=== PATIENT | female | born 1955 | race Caucasian/White ===

== ENCOUNTER 2016-07-23 14:30 | Outpatient (RCR) | payer OTHER ==
[~2016-07-23 14:30] MED LIST: ACHD5005 PO; CEPH500C PO; ENAL20TA PO; HYDR-3454 PO; SIMV5TAB6
== END 2016-07-23 15:59 | disposition home or self-care (01) ==
PROVIDERS: ATTEND Physician Assistant
DX: M54.16 Radiculopathy, lumbar region (principal)

== ENCOUNTER → 2016-12-07 | Outpatient (CLI) | payer OTHER ==
[~2016-12-07] MED LIST changes: +TRAM50TA2 PO
--- NOTE | 2016-12-07 14:01 | Diagnostic Imaging Report ---
Bilateral screening mammogram 2D views with tomosynthesis. The current study was also evaluated with a Computer Aided Detection (CAD) system. INDICATION: Screening. No current complaints stated on the questionnaire. COMPARISON: 10/20/15. FINDINGS: The breasts are composed of scattered fibroglandular densities. There are scattered benign-appearing calcifications. Allowing for technique and positional differences, no suspicious change is seen. IMPRESSION: No significant change. ACR BI-RADS Category 2: Benign findings. Result letter will be mailed to the patient. Note: At least 10% of breast cancer is not imaged by mammography. Dictated by: Dictated on workstation # [id number]
== END ==
LOC: RAD 07:15
PROVIDERS: ATTEND Family Medicine
DX: Z12.31 Encounter for screening mammogram for malignant neoplasm of breast (principal)
CPT/HCPCS: 77067

== ENCOUNTER 2017-02-02 13:47 | Outpatient (RCR) | payer OTHER | END 2017-02-02 14:29 | disposition home or self-care (01) | PROVIDERS: ATTEND Family Medicine | DX: M54.5 Low back pain (principal) ==

== ENCOUNTER 2017-11-03 12:59 | Outpatient (RCR) | payer OTHER | END 2017-11-09 10:29 | disposition home or self-care (01) | PROVIDERS: ATTEND Family Medicine | DX: M54.5 Low back pain (principal); M79.671 Pain in right foot; M79.672 Pain in left foot ==

== ENCOUNTER → 2017-12-12 | Outpatient (CLI) | payer OTHER ==
--- NOTE | 2017-12-12 08:44 | Diagnostic Imaging Report ---
PROCEDURE: MRI lumbar spine. TECHNIQUE: Multiplanar, multisequence MRI of the lumbar spine was performed without contrast. INDICATION: Back pain extending into both legs. COMPARISON: Comparison is made with prior MRI of the lumbar spine from 10/20/2015. FINDINGS: There is right convexity lumbar scoliotic curvature. There is normal lordotic curvature. Vertebral body heights and marrow signal intensity are unremarkable apart from benign-appearing hemangiolipoma within the L3 vertebral body, unchanged. No acute compression fracture is seen. Conus appears unremarkable at the L1-2 level. Generalized degenerative disc disease with variable disc space narrowing and desiccation as well as endplate osteophyte formation is again noted similar to prior MRI. T12-L1: Central canal is widely patent. No neural foraminal narrowing is seen. L1-2: There is ligamentous thickening and facet changes. Central canal remains patent. No significant neural foraminal narrowing is seen. L2-3: There are hypertrophic facet changes and ligamentous thickening with mild trefoil configuration of the thecal sac. AP dimensions of the spinal canal remain within normal limits. There does appear to be narrowing of the left lateral recess. No significant neural foraminal narrowing is seen. L3-4: There is some ligamentous thickening and facet changes. Disc/osteophyte complex is present. This does narrow the left lateral recess. There also appears to be some mild narrowing of the left neural foramen. Right neural foramen and central canal are patent. L4-5: Hypertrophic facet changes and ligamentous thickening are present. Broad-based disc/osteophyte complex does narrow the lateral recesses bilaterally. The central canal is patent. There is moderate bilateral neural foraminal narrowing. L5-S1: Hypertrophic facet changes are present. Central canal is widely patent. There does appear to be bilateral lateral recess and bilateral neural foraminal narrowing. 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 No significant central canal stenosis is seen. No acute compression fracture is detected. Dictated by: Dictated on workstation # [id number]
--- NOTE | 2017-12-12 12:58 | Diagnostic Imaging Report ---
INDICATION: Routine screening. COMPARISON: 12/07/2016 and 10/20/2015. TECHNIQUE: 2D and 3D bilateral screening mammography was performed with CAD. FINDINGS: Scattered fibroglandular densities are identified bilaterally. Benign calcifications in the right breast are again noted. No mass or malignant appearing microcalcifications are seen. The axillae are unremarkable. IMPRESSION: No mammographic features suspicious for malignancy are identified. ACR BI-RADS Category 2: Benign findings. Result letter will be mailed to the patient. Note: At least 10% of breast cancer is not imaged by mammography. Dictated by: Dictated on workstation # [id number]
== END ==
LOC: RAD 07:31
PROVIDERS: ATTEND Family Medicine
DX: Z12.31 Encounter for screening mammogram for malignant neoplasm of breast (principal); M41.86 Other forms of scoliosis, lumbar region; M99.73 Connective tissue and disc stenosis of intervertebral foramina of lumbar region; M51.16 Intervertebral disc disorders with radiculopathy, lumbar region; M47.816 Spondylosis without myelopathy or radiculopathy, lumbar region; G96.19 Other disorders of meninges, not elsewhere classified
CPT/HCPCS: 72148; 77067

== ENCOUNTER 2018-01-05 13:00 | Outpatient (RCR) | payer OTHER | END 2018-01-05 14:33 | disposition home or self-care (01) | PROVIDERS: ATTEND Family Medicine | DX: M54.5 Low back pain (principal); M79.671 Pain in right foot; M79.672 Pain in left foot ==

== ENCOUNTER 2018-03-08 11:36 | Outpatient (CLI) | payer OTHER ==
[~2018-03-08] VITALS: Ht 154.9 cm; Wt 49.0 kg
[2018-03-08 12:01] VITALS: BP 121/79
== END 2018-03-08 12:26 | disposition home or self-care (01) ==
LOC: PREOP 11:36
PROVIDERS: ATTEND Surgery
DX: Z01.818 Encounter for other preprocedural examination (principal)
CPT/HCPCS: 87081

== ENCOUNTER 2018-03-13 06:04 | Day surgery (SDC) | payer OTHER ==
[~2018-03-13] VITALS: Ht 154.9 cm; Wt 48.6 kg
[2018-03-13 06:15] VITALS: BP 132/78
[2018-03-13] MEDS ORDERED: ceFAZolin INJECTION 1,000 MG in NS (IVPB) 50 ML IV ONE (06:15)
[2018-03-13] MEDS: LACTATED RINGERS 1,000 ML IV PRN ×2 (06:20→08:45)
--- NOTE | 2018-03-13 06:40 | NUR ---
RECEIVED VERBAL ORDER FROM BROCK WILKINS CRNA TO GIVE 20MG PEPCID AND ZOFRAN 4MG.
[2018-03-13] MEDS ORDERED: FAMOTIDINE 20MG/2ML IV (PEPCID) ONE (06:42)
[2018-03-13] MEDS ORDERED: ONDANSETRON 4 MG/2 ML (SDV) Z0FRAN ONE ×2 (06:42→06:57)
[2018-03-13] MEDS ORDERED: FAMOTIDINE 20MG/2ML IV (PEPCID) IVP ONE (06:45)
[2018-03-13] MEDS ORDERED: ONDANSETRON 4 MG/2 ML (SDV) Z0FRAN IVP ONE (06:45)
[2018-03-13] MEDS ORDERED: fentaNYL INJECTION 100 MCG/2 ML AMP ONE (06:57)
[2018-03-13] MEDS ORDERED: proPOfol 200 MG/20 ML (DIPRIVAN) VIAL IV ONE (06:57)
[2018-03-13] MEDS ORDERED: MIDAZOLAM 2 MG/2 ML (VERSED) VIAL ONE (06:57)
[2018-03-13] MEDS ORDERED: LIDOCAINE PF 2% 5 ML (XYLOCAINE) VIAL ONE (06:57)
[2018-03-13] MEDS ORDERED: ROCURONIUM 10 MG/ML 5 ML SYRINGE IV ONE (06:57)
[2018-03-13] MEDS ORDERED: LIDOCAINE 1% INJ 20 ML 20 ML VIAL ONE (07:17)
[2018-03-13] MEDS ORDERED: BUP/EPI 0.5% 1:200,000 (SENSORCAINE) 30 ML VIAL ONE (07:17)
--- NOTE | 2018-03-13 07:45 | Progress Note-Pre Operative ---
Pre-Operative Progress Note H&P Reviewed The H&P was reviewed, patient examined and no changes noted. Date Seen by Provider: Mar 13, 2018 Time Seen by Provider: 07:30 Date H&P Reviewed: Mar 13, 2018 Time H&P Reviewed: 07:30 Pre-Operative Diagnosis: right inguinal hernia TIFFANY MALCOLM DO Mar 13, 2018 07:44
[2018-03-13] MEDS ORDERED: SEVOFLURANE (ULTANE) 15 ML INHAL SOLN ONE (08:39)
[2018-03-13] MEDS ORDERED: NEOSTIGMINE 1 MG/ML 5 ML SYRINGE ONE (08:44)
[2018-03-13] MEDS ORDERED: BUPIVACAINE 0.25% 30 ML (SENSORCAINE) VIAL ONE (08:44)
[2018-03-13] MEDS ORDERED: GLYCOPYRROLATE 0.2 MG/ML (ROBINUL) 2 ML VIAL ONE (08:44)
--- NOTE | 2018-03-13 08:45 | Progress Note-Post Operative ---
Post-Operative Progess Note Surgeon (s)/Audio Visual Coordinator (s) Surgeon TIFFANY MALCOLM DO Audio Visual Coordinator: Dr. Johnson Pre-Operative Diagnosis right inguinal hernia Post-Operative Diagnosis direct right inguinal hernia Procedure & Operative Findings Date of Procedure 03/13/18 Procedure Performed/Findings right inguinal hernia repair Anesthesia Type gen Estimated Blood Loss Estimated blood loss (mL): min Specimens/Packing Specimens Removed na TIFFANY MALCOLM DO Mar 13, 2018 08:45
[2018-03-13] MEDS ORDERED: ACHD5005 PO (08:46)
[2018-03-13] MEDS ORDERED: DOCU-143 PO (08:46)
--- NOTE | 2018-03-13 08:47 | Discharge Inst-Simple/Standard ---
Discharge Inst-Standard Discharge Medications New, Converted or Re-Newed RX: RX on Chart Patient Instructions/Follow Up Plan of Care/Instructions/FU: 2 weeks Malcolm Activity as Tolerated: No Discharge Diet: Regular Diet Other Inst to Patient Follow up Appt: Make appointment for 2 week. Instructions: No lifting greater than 10 pounds. No strenuous activity. May shower in 24 hours, no tub bath or soaking. Use incentive spirometer at home as directed. No Smoking Skin/Wound Care: You have special glue over incision it will fall off on its own. Symptoms to Report: Appetite Changes, Extremity Discoloration, Numbness/Tingling, Swelling Increased , Bleeding Excessive, Eyesight Changes, Pain Increased, Urine Color Change, Constipation(Persistent), Fever over 101 degree F, Pain/Pressure in chest, Urinating Difficulty, Cough Up/Vomit Blood, Heart Beat Irreg/Pounding, Pain/ Pressure in jaw, Vaginal Bleeding Increase, Cramps in feet or legs, Lightheadedness, Pain/Pressure in shoulder, Diarrhea(Persistent), Memory Changes Suddenly, Questions/Concerns, Weight gain consecutive days, Dizziness/ Fainting, Nausea/Vomiting, Shortness of Breath, Weight gain over 2 pounds If questions or concerns contact your physician Or seek help at emergency department. TIFFANY MALCOLM DO Mar 13, 2018 08:47
[2018-03-13] MEDS ORDERED: HYDROcodone/APAP 5 MG/325 MG (LORTAB) TAB PO PRN (09:00)
[2018-03-13] MEDS ORDERED: morphine INJ 10 MG/ML 1ML (SYR OR VIAL) IVP ONE (09:15)
[2018-03-13] MEDS ORDERED: PROMETHAZINE INJ 25 MG/ML (PHENERGAN) AMP IVP ONE (09:15)
[2018-03-13] MEDS ORDERED: ONDANSETRON 4 MG/2 ML (SDV) Z0FRAN IVP PRN (09:15)
[2018-03-13] MEDS ORDERED: MEPERIDINE (DEMEROL) INJ 50 MG/ML IVP ONE (09:15)
[2018-03-13 09:55] VITALS: BP 120/74
--- NOTE | 2018-03-13 10:07 | NUR ---
MERARY, RT PHONED FOR IS AT THIS TIME
[2018-03-13 10:25] VITALS: BP 132/84
--- NOTE | 2018-03-13 10:41 | Anesthesia-General Post-Op ---
General Patient Condition Mental Status/LOC: Same as Preop Cardiovascular: Satisfactory Nausea/Vomiting: Absent Respiratory: Satisfactory Pain: Controlled Complications: Absent Post Op Complications Complications None Follow Up Care/Instructions Patient Instructions None needed. Anesthesia/Patient Condition Patient Condition Patient is doing well, no complaints, stable vital signs, no apparent adverse anesthesia problems. No complications reported per nursing. BROCK WILKINS CRNA Mar 13, 2018 10:41
[2018-03-13 10:55] VITALS: BP 136/85
[2018-03-13 11:08] VITALS: BP 136/85
--- NOTE | 2018-03-14 02:34 | OPERATIVE REPORT ---
DATE OF SERVICE: 03/13/2018 PREOPERATIVE DIAGNOSIS: Right inguinal hernia. POSTOPERATIVE DIAGNOSIS: Direct right inguinal hernia. PROCEDURE: Open right inguinal hernia. SURGEON: Tiffany Malcolm DO CLOTH COLORER: Dr. Johnson, assisted in retraction, dissection and closure. ANESTHESIA: General. ESTIMATED BLOOD LOSS: Minimal. COMPLICATIONS: None. INDICATIONS: The patient is a 62-year-old female with a right inguinal hernia. She understands risks and benefits of procedure and wished to proceed with procedure. Consent was signed in the chart. DESCRIPTION OF PROCEDURE: The patient was taken to the operating suite. She was prepped and draped in sterile fashion. Surgical pause was performed. Local anesthetic was infiltrated into the area. A 15 blade scalpel was used to make a small skin incision in the right lower quadrant. Cautery dissection was taken down to the external oblique, which was then opened out through the external ring. The remnant was then dissected around and a direct defect was noted. The round ligament was removed. The hernia contents were then reduced down through the defect and using 2-0 Vicryl, the defect was closed and also the internal ring was closed. The ProGrip mesh was then cut to size. It was secured to Epi's ligament with 0 Vicryl suture. I then placed under the external oblique. Adequate coverage present. The wound was then irrigated with copious amounts of irrigation and suction. The external oblique was then closed, recreating the external ring with 3-0 Vicryl. The wound was then irrigated with copious amounts of irrigation again. The subcutaneous tissues were then reapproximated using 3-0 Vicryl. Skin was then closed using 4-0 Monocryl in a subcuticular fashion. The area was then washed and dried and Skin Affix was placed over the incision. The patient tolerated procedure well without complications. She was taken to recovery room in stable condition. Job ID: [id number] DocumentID: [id number] Dictated Date: 03/13/2018 14:05:56 Plaster Maker Date: 03/14/2018 02:33:03 Dictated By: TIFFANY MALCOLM DO
== END 2018-03-13 11:08 | disposition home or self-care (01) ==
LOC: SDC 06:04
PROVIDERS: ATTEND Surgery
DX: K40.90 Unilateral inguinal hernia, without obstruction or gangrene, not specified as recurrent (principal); I10 Essential (primary) hypertension; Z79.899 Other long term (current) drug therapy
CPT/HCPCS: 94664

== ENCOUNTER → 2018-12-13 | Outpatient (CLI) | payer MEDICARE, OTHER ==
[~2018-12-13] MED LIST changes: +DOCU-143 PO
--- NOTE | 2018-12-14 17:48 | Diagnostic Imaging Report ---
EXAMINATION: Digital mammogram bilateral screening. INDICATION: Screening. COMPARISON: This study was compared to the prior exams of 12/12/2017, 12/07/2016, and 10/20/2015. At this time, there are no current complaints. The current study was also evaluated with a Computer Aided Detection (CAD) system. 3-D tomosynthesis was also performed and reviewed. FINDINGS: There are scattered fibroglandular densities in both breasts which could obscure a lesion. When compared to the prior study, there has been no significant change. There is no primary or secondary sign of malignancy noted. The 3D tomographic views also fail to show any sign of malignancy. IMPRESSION: There is no evidence of malignancy. ACR BI-RADS Category 1: Negative. Result letter will be mailed to the patient. Note: At least 10% of breast cancer is not imaged by mammography. Dictated by: Dictated on workstation # [id number]
== END ==
LOC: RAD 14:37
PROVIDERS: ATTEND Family Medicine
DX: Z12.31 Encounter for screening mammogram for malignant neoplasm of breast (principal)
CPT/HCPCS: 77067

== ENCOUNTER 2019-01-16 13:49 | Outpatient (RCR) | payer OTHER, MEDICARE | END 2019-01-21 | disposition home or self-care (01) | PROVIDERS: ATTEND Family Medicine | DX: G89.29 Other chronic pain (principal); M54.40 Lumbago with sciatica, unspecified side; M79.671 Pain in right foot; M79.672 Pain in left foot; Z98.890 Other specified postprocedural states ==

== ENCOUNTER 2019-02-01 13:25 | Outpatient (RCR) | payer OTHER, MEDICARE ==
[~2019-02-01 13:25] MED LIST changes: -TRAM50TA2 PO; +TRM50T PO
== END 2019-02-14 13:21 | disposition home or self-care (01) ==
PROVIDERS: ATTEND Family Medicine
DX: G89.29 Other chronic pain (principal); M54.40 Lumbago with sciatica, unspecified side; M79.671 Pain in right foot; M79.672 Pain in left foot; Z98.890 Other specified postprocedural states

== ENCOUNTER 2019-04-05 12:54 | Outpatient (RCR) | payer MEDICARE | END 2019-04-05 15:58 | disposition home or self-care (01) | PROVIDERS: ATTEND Family Medicine | DX: M25.511 Pain in right shoulder (principal); M54.5 Low back pain ==

== ENCOUNTER 2020-02-05 05:43 | Outpatient (RCR) | payer MEDICARE ==
[~2020-02-05] VITALS: Ht 154.9 cm; Wt 48.6 kg
[~2020-02-05 05:43] MED LIST changes: -CYCL10TA9 PO; -DIAZ5TAB49 PO; -TRAM50TA3 PO
[2020-02-05] MEDS ORDERED: DIAZ5TAB49 PO (10:03)
[2020-02-05] MEDS ORDERED: ENAL20TA16 PO (10:03)
[2020-02-05] MEDS ORDERED: TRAM50TA3 PO (10:03)
[2020-02-05] MEDS ORDERED: CYCL10TA9 PO (10:03)
== END 2020-02-05 12:21 | disposition home or self-care (01) ==
LOC: PREOP 05:43
PROVIDERS: ATTEND Surgery
DX: Z01.818 Encounter for other preprocedural examination (principal); C76.42 Malignant neoplasm of left upper limb; C43.71 Malignant melanoma of right lower limb, including hip

== ENCOUNTER → 2020-02-05 | Outpatient (CLI) | payer MEDICARE ==
[~2020-02-05] MED LIST changes: +CYCL10TA9 PO; +DIAZ5TAB49 PO; +ENAL20TA16 PO; +TRAM50TA3 PO
== END ==
LOC: LABNPT 08:10
PROVIDERS: ATTEND Surgery
DX: Z20.828 Contact with and (suspected) exposure to other viral communicable diseases (principal)
CPT/HCPCS: 87635

== ENCOUNTER 2020-02-07 06:02 | Day surgery (SDC) | payer MEDICARE ==
[2020-02-07] VITALS (10 sets, daily range): BP systolic 100–126; BP diastolic 61–81
[~2020-02-07] VITALS: Ht 154.9 cm; Wt 48.6 kg
[~2020-02-07 06:02] MED LIST changes: +CYCL10TA9 PO; +DIAZ5TAB49 PO; +TRAM50TA3 PO
[2020-02-07] MEDS ORDERED: ceFAZolin INJECTION 1,000 MG in WATER (STERILE) FOR INJECTION 10 ML IV ONE (06:15)
[2020-02-07] MEDS: LACTATED RINGERS 1,000 ML IV PRN ×2 (06:55→09:30)
[2020-02-07] MEDS ORDERED: proPOfol 200 MG/20 ML (DIPRIVAN) VIAL IV ONE (07:06)
[2020-02-07] MEDS ORDERED: fentaNYL INJECTION 100 MCG/2 ML AMP ONE (07:06)
[2020-02-07] MEDS ORDERED: MIDAZOLAM 2 MG/2 ML (VERSED) VIAL ONE (07:06)
[2020-02-07] MEDS ORDERED: LIDOCAINE PF 2% 5 ML (XYLOCAINE) VIAL ONE (07:06)
[2020-02-07] MEDS ORDERED: ONDANSETRON 4 MG/2 ML (SDV) Z0FRAN ONE ×2 (07:06→10:10)
[2020-02-07] MEDS ORDERED: SEVOFLURANE (ULTANE) 15 ML INHAL SOLN ONE ×4 (07:09→09:45)
[2020-02-07] MEDS ORDERED: MIDAZOLAM 2 MG/2 ML (VERSED) VIAL IV ONE (07:15)
[2020-02-07] MEDS ORDERED: FAMOTIDINE 20MG/2ML IV (PEPCID) IV ONE (07:15)
[2020-02-07] MEDS ORDERED: ONDANSETRON 4 MG/2 ML (SDV) Z0FRAN IV ONE (07:15)
[2020-02-07] MEDS ORDERED: LIDOCAINE/EPI 1%-1:100,000 (XYLOCAINE) 50 ML ONE (08:38)
--- NOTE | 2020-02-07 08:56 | Progress Note-Pre Operative ---
Pre-Operative Progress Note H&P Reviewed The H&P was reviewed, patient examined and no changes noted. Date Seen by Provider: Feb 07, 2020 Time Seen by Provider: 08:55 Date H&P Reviewed: Feb 07, 2020 Time H&P Reviewed: 08:55 Pre-Operative Diagnosis: melanoma right ankle, skin lesion left hand TIFFANY MALCOLM DO Feb 07, 2020 08:56
--- NOTE | 2020-02-07 09:51 | Progress Note-Post Operative ---
Post-Operative Progess Note Surgeon (s)/Meter Repairer Helper (s) Surgeon TIFFANY MALCOLM DO Meter Repairer Helper: na Pre-Operative Diagnosis melanoma right ankle, skin lesion left hand Post-Operative Diagnosis same Procedure & Operative Findings Date of Procedure 02/07/20 Procedure Performed/Findings left hand skin lesion excision 1.1x2cm excision of right ankle melanoma 4.5x6.5cm Anesthesia Type general Estimated Blood Loss Estimated blood loss (mL): min Specimens/Packing Specimens Removed lesion left hand melanoma right ankle Packing: kerlex right ankle wet to dry TIFFANY MALCOLM DO Feb 07, 2020 09:51
--- NOTE | 2020-02-07 09:54 | Discharge Inst-Simple/Standard ---
Discharge Inst-Standard Patient Instructions/Follow Up Plan of Care/Instructions/FU: Tomorrow to same day surgery for packing change daily. Tuesday see Dr. Malcolm in office. Keep areas clean and dry. Change daily, with right ankle wet to dry. Activity as Tolerated: Yes Discharge Diet: Regular Diet Other Inst to Patient Follow up Appt: Make appointment for Dr. Malcolm Tuesday. Daily dressing changes daily and as needed wet to dry for right ankle. To be done in same day surgery. Instructions: No strenuous activity. May shower in 24 hours, no tub bath or soaking. Use incentive spirometer at home as directed. No Smoking Skin/Wound Care: As noted above. Symptoms to Report: Appetite Changes, Extremity Discoloration, Numbness/Tingling, Swelling Increased, Bleeding Excessive, Eyesight Changes, Pain Increased, Urine Color Change, Constipation(Persistent), Fever over 101 degree F, Pain/Pressure in chest, Urinating Difficulty, Cough Up/Vomit Blood, Heart Beat Irreg/Pounding, Pain/Pressure in jaw, Vaginal Bleeding Increase, Cramps in feet or legs, Lightheadedness, Pain/Pressure in shoulder, Diarrhea(Persistent), Memory Changes Suddenly, Questions/Concerns, Weight gain consecutive days, Dizziness/Fainting, Nausea/Vomiting, Shortness of Breath, Weight gain over 2 pounds If questions or concerns contact your physician Or seek help at emergency department. TIFFANY MALCOLM DO Feb 07, 2020 09:54
[2020-02-07] MEDS ORDERED: MEPERIDINE (DEMEROL) INJ 50 MG/ML IVP ONE (10:00)
[2020-02-07] MEDS ORDERED: ONDANSETRON 4 MG/2 ML (SDV) Z0FRAN IVP PRN (10:00)
[2020-02-07] MEDS ORDERED: morphine INJ 10 MG/ML 1ML (SYR OR VIAL) IVP ONE (10:00)
--- NOTE | 2020-02-07 10:41 | Anesthesia-General Post-Op ---
General Patient Condition Mental Status/LOC: Same as Preop Cardiovascular: Satisfactory Nausea/Vomiting: Absent Respiratory: Satisfactory Pain: Controlled Complications: Absent Post Op Complications Complications None Follow Up Care/Instructions Patient Instructions None needed. Anesthesia/Patient Condition Patient Condition Patient is doing well, no complaints, stable vital signs, no apparent adverse anesthesia problems. No complications reported per nursing. HERNANDEZ MORRISON CRNA Feb 07, 2020 10:41
--- NOTE | 2020-02-07 20:53 | OPERATIVE REPORT ---
DATE OF SERVICE: 02/07/2020 PREOPERATIVE DIAGNOSES: Melanoma right ankle and skin lesion, left hand dorsum. POSTOPERATIVE DIAGNOSES: Melanoma right ankle and skin lesion, left hand dorsum. PROCEDURE: Excision of left hand lesion 1.1 x 2 cm and excision of right ankle melanoma 4.5 x 6.5 cm. SURGEON: Tiffany Malcolm DO ANESTHESIA: General. ESTIMATED BLOOD LOSS: Minimal. COMPLICATIONS: None. INDICATIONS: The patient is a 64-year-old female with a lesion of the left hand, which pathology demonstrated squamous cell carcinoma and completely excised, and the patient with a large lesion to the right ankle area on the lateral aspect that biopsy demonstrating melanoma. The patient was discussed risks and benefits of procedures and wished to proceed with procedures. Consent was signed in the chart. DESCRIPTION OF PROCEDURE: The patient was taken to the operating suite. She was prepped and draped in sterile fashion. Surgical pause was performed. Local anesthetic was infiltrated in the left hand. An elliptical incision measuring 1.1 x 2 cm was made around the lesion removing skin and subcutaneous tissues. Skin was then closed using Prolene in a running fashion. The area was washed and dried, sterile bandage was applied. New instruments were used. Local anesthetic was infiltrated around the right ankle melanoma. A circumferential incision was made with 1 cm margin around the lesion. The skin and subcutaneous tissue was then removed with 15 blade scalpel measuring 4.5 x 6.5 cm. Specimen was then labeled short suture superior, long suture lateral. The wound was irrigated and hemostasis was achieved. The wound unable to be closed; therefore, it was packed wet to dry. The patient tolerated procedure well without any complications. RECOMMENDATIONS: The patient will continue with wound care and followup on pathology. Job ID: [id number] DocumentID: [id number] Dictated Date: 02/07/2020 14:55:11 Stripper And Taper Date: 02/07/2020 20:52:27 Dictated By: TIFFANY MALCOLM DO
== END 2020-02-07 11:05 | disposition home or self-care (01) ==
LOC: SDC 06:02
PROVIDERS: ATTEND Surgery
DX: C43.71 Malignant melanoma of right lower limb, including hip (principal); C43.62 Malignant melanoma of left upper limb, including shoulder; I10 Essential (primary) hypertension; M19.90 Unspecified osteoarthritis, unspecified site; Z79.899 Other long term (current) drug therapy; Z88.5 Allergy status to narcotic agent; Z88.8 Allergy status to other drugs, medicaments and biological substances
CPT/HCPCS: 87081; 88305; 88344

== ENCOUNTER → 2020-02-19 | Outpatient (CLI) | payer MEDICARE ==
[~2020-02-19] MED LIST changes: +HYDR-4226 PO
== END ==
LOC: LABNPT 08:14
PROVIDERS: ATTEND Surgery
DX: Z20.822 Contact with and (suspected) exposure to COVID-19 (principal)
CPT/HCPCS: 87635

== ENCOUNTER 2020-02-20 09:00 | Outpatient (RCR) | payer MEDICARE ==
[~2020-02-20] VITALS: Ht 154.9 cm; Wt 52.3 kg
[~2020-02-20 09:00] MED LIST changes: -HYDR-4226 PO
[2020-02-21] MEDS ORDERED: HYDR-4226 PO (12:28)
== END 2020-02-20 11:56 | disposition home or self-care (01) ==
LOC: PREOP 09:00
PROVIDERS: ATTEND Surgery
DX: Z01.818 Encounter for other preprocedural examination (principal)

== ENCOUNTER 2020-02-21 06:28 | Day surgery (SDC) | payer MEDICARE ==
[~2020-02-21] VITALS: Ht 154 cm; Wt 52.3 kg
[2020-02-21] VITALS (12 sets, daily range): BP systolic 115–135; BP diastolic 73–84
[2020-02-21] MEDS ORDERED: LACTATED RINGERS 1,000 ML IV PRN (06:45)
[2020-02-21] MEDS ORDERED: ceFAZolin INJECTION 1,000 MG in WATER (STERILE) FOR INJECTION 10 ML IV ONE ×4 (06:45)
[2020-02-21] MEDS ORDERED: FAMOTIDINE 20MG/2ML IV (PEPCID) IV ONE (07:00)
[2020-02-21] MEDS ORDERED: ONDANSETRON 4 MG/2 ML (SDV) Z0FRAN IV ONE (07:00)
[2020-02-21] MEDS: LACTATED RINGERS 1,000 ML IV PRN ×2 (08:05→12:15)
--- NOTE | 2020-02-21 08:09 | Progress Note-Pre Operative ---
Pre-Operative Progress Note H&P Reviewed The H&P was reviewed, patient examined and no changes noted. Date Seen by Provider: Feb 21, 2020 Time Seen by Provider: 08:09 Date H&P Reviewed: Feb 21, 2020 Time H&P Reviewed: 08:09 Pre-Operative Diagnosis: right lower extremity melanoma TIFFANY MALCOLM DO Feb 21, 2020 08:09
[2020-02-21] MEDS ORDERED: MIDAZOLAM 2 MG/2 ML (VERSED) VIAL IV ONE (08:15)
--- NOTE | 2020-02-21 08:50 | Diagnostic Imaging Report ---
Lymphoscintigraphy. INDICATION: Malignant melanoma. This study was performed following administration of 1.1 mCi of 99 technetium sulfur colloid about the incision site in the right lower leg. A single spot film was obtained. There is uptake of the radiotracer by several nodes in the right inguinal region. The skin over one of the nodes was marked. IMPRESSION: There has been a successful lymphoscintigraphy procedure. Dictated by: Dictated on workstation # [id number]
[2020-02-21] MEDS ORDERED: LIDOCAINE/EPI 1%-1:100,000 (XYLOCAINE) 50 ML ONE (10:05)
[2020-02-21] MEDS ORDERED: METHYLENE BLUE 0.5% (PROVAYBLUE) 50 mg/10 ml vial IV ONE (10:05)
[2020-02-21] MEDS ORDERED: MIDAZOLAM 2 MG/2 ML (VERSED) VIAL ONE (10:10)
[2020-02-21] MEDS ORDERED: PROPOFOL INJECTION 50 ML IV ONE (10:10)
[2020-02-21] MEDS ORDERED: fentaNYL INJECTION 100 MCG/2 ML AMP ONE (10:10)
[2020-02-21] MEDS ORDERED: SEVOFLURANE (ULTANE) 15 ML INHAL SOLN ONE ×4 (10:19→11:41)
[2020-02-21] MEDS ORDERED: ONDANSETRON 4 MG/2 ML (SDV) Z0FRAN ONE (10:20)
[2020-02-21] MEDS ORDERED: LIDOCAINE PF 2% 5 ML (XYLOCAINE) VIAL ONE (10:20)
--- NOTE | 2020-02-21 11:50 | Progress Note-Post Operative ---
Post-Operative Progess Note Surgeon (s)/Studio Director (s) Surgeon TIFFANY MALCOLM DO Studio Director: na Pre-Operative Diagnosis right lower extremity melanoma Post-Operative Diagnosis same Procedure & Operative Findings Date of Procedure 02/21/20 Procedure Performed/Findings right lower extremity sentinel node biopsy, re-excision right lower extremity melanoma 7.5x1cm Anesthesia Type general Estimated Blood Loss Estimated blood loss (mL): minimalm Specimens/Packing Specimens Removed sentinel node, right lower ext melanoma TIFFANY MALCOLM DO Feb 21, 2020 11:50
--- NOTE | 2020-02-21 11:58 | Anesthesia-General Post-Op ---
General Patient Condition Mental Status/LOC: Same as Preop Cardiovascular: Satisfactory Nausea/Vomiting: Absent Respiratory: Satisfactory Pain: Controlled Complications: Absent Post Op Complications Complications None Follow Up Care/Instructions Patient Instructions None needed. Anesthesia/Patient Condition Patient Condition Patient is doing well, no complaints, stable vital signs, no apparent adverse anesthesia problems. No complications reported per nursing. TAMARA SIMON CRNA Feb 21, 2020 11:57
[2020-02-21] MEDS ORDERED: ONDANSETRON 4 MG/2 ML (SDV) Z0FRAN IVP PRN (12:00)
[2020-02-21] MEDS ORDERED: morphine INJ 10 MG/ML 1ML (SYR OR VIAL) IVP ONE (12:00)
[2020-02-21] MEDS ORDERED: fentaNYL INJECTION 100 MCG/2 ML AMP IVP ONE (12:00)
[2020-02-21] MEDS ORDERED: morphine INJ 10 MG/ML 1ML (SYR OR VIAL) ONE (12:07)
[2020-02-21] MEDS ORDERED: HYDR-4226 PO (12:28)
--- NOTE | 2020-02-21 12:29 | Discharge Inst-Simple/Standard ---
Discharge Inst-Standard Discharge Medications New, Converted or Re-Newed RX: RX on Chart Patient Instructions/Follow Up Plan of Care/Instructions/FU: Daily wound care just as you were doing before. Activity as Tolerated: No Discharge Diet: Regular Diet Other Inst to Patient Follow up Appt: Make appointment for 2 week. Instructions: No lifting greater than 10 pounds. No strenuous activity. May shower in 24 hours, no tub bath or soaking. Use incentive spirometer at home as directed. No Smoking Skin/Wound Care: You have special glue over your incision that will fall off on it's own. Keep doing local wound care as you were doing before. Symptoms to Report: Appetite Changes, Extremity Discoloration, Numbness/Tingling, Swelling Increased, Bleeding Excessive, Eyesight Changes, Pain Increased, Urine Color Change, Constipation(Persistent), Fever over 101 degree F, Pain/Pressure in chest, Urinating Difficulty, Cough Up/Vomit Blood, Heart Beat Irreg/Pounding, Pain/Pressure in jaw, Vaginal Bleeding Increase, Cramps in feet or legs, Lightheadedness, Pain/Pressure in shoulder, Diarrhea(Persistent), Memory Changes Suddenly, Questions/Concerns, Weight gain consecutive days, Dizziness/Fainting, Nausea/Vomiting, Shortness of Breath, Weight gain over 2 pounds If questions or concerns contact your physician Or seek help at emergency department. TIFFANY MALCOLM DO Feb 21, 2020 12:29
[2020-02-21] MEDS ORDERED: HYDROcodone/APAP 5 MG/325 MG (LORTAB) TAB ONE (13:45)
[2020-02-21] MEDS ORDERED: HYDROcodone/APAP 5 MG/325 MG (LORTAB) TAB PO ONE (14:00)
--- NOTE | 2020-02-21 16:40 | OPERATIVE REPORT ---
DATE OF SERVICE: 02/21/2020 PREOPERATIVE DIAGNOSIS: Malignant melanoma, right lower extremity. POSTOPERATIVE DIAGNOSIS: Malignant melanoma, right lower extremity. PROCEDURE: Right lower extremity sentinel node biopsy and reexcision of right lower extremity malignant melanoma 7.5 x 1 cm of lateral margin. SURGEON: Tiffany Malcolm DO ANESTHESIA: General. ESTIMATED BLOOD LOSS: Minimal. COMPLICATIONS: None. INDICATIONS: The patient is a 64-year-old female with malignant melanoma. She had excised, the lateral margin was still positive for melanoma in situ. She understands risks and benefits of procedure and wished to proceed with procedure. The patient also discussed doing a sentinel node biopsy, which she understands risks and benefits for and wishes to proceed as well. Consent was signed in the chart. DESCRIPTION OF PROCEDURE: The patient was taken to the operating suite. She was prepped and draped in sterile fashion. Timeout was performed. Wikisway counter was used to isolate the sentinel node seen on lymphoscintigraphy. A 15 blade scalpel was used to make a small skin incision and cautery was used to dissect down to the subcutaneous tissues until the node was encountered. It was purple in color and was a strong hit. In-vivo count was 767. Cautery and blunt dissection was used to remove the node in its entirety. Ex-vivo count was 775. A 10-second count on the node was 7131. The groin was inspected. There was nothing else. No other nodes were lighting up. No other palpable nodes present. The wound was then irrigated with copious amounts of irrigation and the subcutaneous tissues were then reapproximated using 3-0 Vicryl and the skin was then closed using 4-0 Monocryl. The area was then washed and dried and Skin Affix was placed over the incision. Right lower extremity was prepped and draped in sterile fashion. The lateral or posterior margin of the previous excision had positive margins for melanoma in situ. This was between the 8 and 10 o'clock position. Therefore, reexcision was performed with a 15 blade scalpel, removing 7.5 x 1 cm area. No visible pathology is noted. The subcutaneous tissues were divided with the Bovie until removed. This specimen was labeled with a short suture superior and a long suture lateral. Hemostasis was achieved. The wound was irrigated with copious amounts of irrigation and sterile bandage was applied. The patient tolerated procedure well without any complications. We will wait for the pathology. Continue with wound care daily as instructed. Further recommendations pending results. Job ID: [id number] DocumentID: [id number] Dictated Date: 02/21/2020 15:20:24 Ornamental Metal Worker Date: 02/21/2020 16:38:46 Dictated By: TIFFANY MALCOLM DO
== END 2020-02-21 14:55 | disposition home or self-care (01) ==
LOC: SDC 06:28
PROVIDERS: ATTEND Surgery
DX: C43.71 Malignant melanoma of right lower limb, including hip (principal); I10 Essential (primary) hypertension; M06.9 Rheumatoid arthritis, unspecified; Z79.899 Other long term (current) drug therapy; Z88.5 Allergy status to narcotic agent; Z88.8 Allergy status to other drugs, medicaments and biological substances
CPT/HCPCS: 11606; 38500; 78195; 87081; 88305; 88307; 88344; A9541

== ENCOUNTER 2020-03-01 09:00 | Outpatient (RCR) | payer MEDICARE ==
[2020-02-08 09:30] VITALS: BP 107/78
[2020-02-09 09:45] VITALS: BP 113/84
[2020-02-10 09:15] VITALS: BP 109/73
[2020-02-16 09:00] VITALS: BP 133/86
[2020-02-17 09:00] VITALS: BP 107/90
[2020-02-23 09:40] VITALS: BP 117/76
[2020-02-24 10:10] VITALS: BP 118/83
[~2020-03-01] VITALS: Ht 147 cm; Wt 52.3 kg
[~2020-03-01 09:00] MED LIST changes: +HYDR-4226 PO
== END 2020-05-08 | disposition home or self-care (01) ==
LOC: SDC 09:00
PROVIDERS: ATTEND Surgery
DX: Z01.89 Encounter for other specified special examinations (principal)
CPT/HCPCS: 99212

== ENCOUNTER 2020-06-09 12:55 | Outpatient (RCR) | payer MEDICARE | END 2020-06-30 10:05 | disposition home or self-care (01) | PROVIDERS: ATTEND Nurse Practitioner | DX: M75.21 Bicipital tendinitis, right shoulder (principal) ==

== ENCOUNTER 2020-10-17 10:41 | Outpatient (RCR) | payer MEDICARE | END 2020-10-23 | disposition home or self-care (01) | PROVIDERS: ATTEND Orthopaedic Surgery | DX: M25.511 Pain in right shoulder (principal); Z98.890 Other specified postprocedural states ==

== ENCOUNTER → 2020-10-24 | Outpatient (CLI) | payer MEDICARE ==
--- NOTE | 2020-10-24 13:36 | Diagnostic Imaging Report ---
INDICATION: Routine screening. COMPARISON is made with prior mammograms from 12/13/2018 and 12/12/2017. 2-D and 3-D bilateral screening mammography was performed with CAD. Scattered fibroglandular densities are identified bilaterally. The parenchymal pattern is stable. No mass or malignant-appearing microcalcifications are seen. Axillae are unremarkable. IMPRESSION: BI-RADS Category 1 No mammographic features suspicious for malignancy are identified. ACR BI-RADS Category 1: Negative. Result letter will be mailed to the patient. Note: At least 10% of breast cancer is not imaged by mammography. Dictated by: Dictated on workstation # [id number]
== END ==
LOC: RAD 09:26
PROVIDERS: ATTEND Family Medicine
DX: Z12.31 Encounter for screening mammogram for malignant neoplasm of breast (principal)
CPT/HCPCS: 77063; 77067

== ENCOUNTER 2021-01-09 10:30 | Outpatient (RCR) | payer MEDICARE ==
[~2021-01-09 10:30] MED LIST changes: +CYCL10TA25 PO; -CYCL10TA9 PO
== END 2021-01-09 11:28 | disposition home or self-care (01) ==
PROVIDERS: ATTEND Orthopaedic Surgery
DX: M25.511 Pain in right shoulder (principal); Z98.890 Other specified postprocedural states

== ENCOUNTER 2022-05-19 05:39 | Outpatient (CLI) | payer MEDICARE ==
[~2022-05-19] VITALS: Ht 155 cm; Wt 49.4 kg
[2022-05-21] MEDS ORDERED: SIMV20TA26 PO (12:01)
== END 2022-05-21 12:10 | disposition home or self-care (01) ==
LOC: PREOP 05:39
PROVIDERS: ATTEND Surgery
DX: Z01.818 Encounter for other preprocedural examination (principal)

== ENCOUNTER 2022-06-01 07:12 | Day surgery (SDC) | payer MEDICARE ==
[~2022-06-01] VITALS: Ht 154.9 cm; Wt 49.4 kg
[~2022-06-01 07:12] MED LIST changes: +SIMV20TA26 PO
[2022-06-01] MEDS ORDERED: LACTATED RINGERS 1,000 ML IV STA (07:21)
[2022-06-01] MEDS ORDERED: PROPOFOL INJECTION 50 ML IV ONE (07:27)
[2022-06-01 07:30] VITALS: BP 167/98
[2022-06-01 08:35] VITALS: BP 152/96
--- NOTE | 2022-06-01 08:36 | Discharge Inst-Simple/Standard ---
Discharge Inst-Standard Reconcile Patient Problems Problems Reviewed?: Yes Patient Instructions/Follow Up Plan of Care/Instructions/FU: F/u in [address] Malcolm Activity as Tolerated: Yes Discharge Diet: No Restrictions, Regular Diet TIFFANY MALCOLM DO Jun 01, 2022 08:36
--- NOTE | 2022-06-01 08:37 | Progress Note-Post Operative ---
Post-Operative Progess Note Surgeon (s)/Anode Machine Operator (s) Surgeon TIFFANY MALCOLM DO Anode Machine Operator: n/a Pre-Operative Diagnosis hx colon polyps Post-Operative Diagnosis colon polyp Procedure & Operative Findings Date of Procedure 06/01/22 Procedure Performed/Findings colonoscopy with hot biopsy polypectomy Anesthesia Type per [facility] Estimated Blood Loss Estimated blood loss (mL): none Specimens/Packing Specimens Removed colon polyp TIFFANY MALCOLM DO Jun 01, 2022 08:37
[2022-06-01 08:40] VITALS: BP 151/90
--- NOTE | 2022-06-01 11:27 | Anesthesia-General Post-Op ---
MAC Patient Condition Mental Status/LOC: Same as Preop Cardiovascular: Satisfactory Nausea/Vomiting: Absent Respiratory: Satisfactory Pain: Controlled Complications: Absent Post Op Complications Complications None Follow Up Care/Instructions Patient Instructions None needed. Anesthesiology Discharge Order Discharge Order Patient was doing well this morning after the procedure with no complaints, stable vital signs, no apparent adverse anesthesia problems. No complications reported per nursing. TABITHA ARRIAGA DO Jun 01, 2022 11:27
--- NOTE | 2022-06-01 14:43 | OPERATIVE REPORT ---
DATE OF SERVICE: 06/01/2022 PREOPERATIVE DIAGNOSIS: History of polyps. POSTOPERATIVE DIAGNOSIS: Colon polyp. PROCEDURE: Colonoscopy with hot biopsy polypectomy x1. SURGEON: Tiffany Malcolm DO ANESTHESIA: Per MD. ESTIMATED BLOOD LOSS: None. COMPLICATIONS: None. INDICATIONS: The patient is a 66-year-old female with a history of polyps. She understands risks and benefits of procedure and wished to proceed. Consent was signed in chart. DESCRIPTION OF PROCEDURE: The patient was taken to endoscopy suite, placed in left lateral recumbent position. Timeout was performed. Digital rectal exam was performed. No palpable polyps, masses or ulcerations. Scope was inserted in the rectum, advanced all the way to the cecum with minimal difficulty. Prep was adequate with irrigation and suction. Scope was then slowly retracted back. No polyps, masses or ulcerations in the cecum. The ascending colon, transverse colon, small polyp was present, which hot biopsy polypectomy was performed. Scope was then continuously retracted back. No polyps, masses or ulcerations in the remainder of the transverse, descending and sigmoid colon. Once in the rectum, scope was retroflexed noting no other pathology. Scope was returned to its normal position, slowly withdrawn until completely removed. The patient tolerated the procedure well without complications, taken to recovery room in stable condition. RECOMMENDATIONS: The patient will repeat colonoscopy in 5 years. Any issues before that, be seen at that time. He will follow up on pathology in 2 weeks. Job ID: [id number] DocumentID: [id number] Dictated Date: 06/01/2022 08:37:40 [employer] Date: 06/01/2022 14:40:00 Dictated By: TIFFANY MALCOLM DO
== END 2022-06-01 09:07 | disposition home or self-care (01) ==
LOC: ENDO 07:12
PROVIDERS: ATTEND Surgery
DX: Z12.11 Encounter for screening for malignant neoplasm of colon (principal); D12.3 Benign neoplasm of transverse colon; Z85.820 Personal history of malignant melanoma of skin
CPT/HCPCS: 88305